=== PATIENT | male | born 1960 | race Caucasian/White ===

== ENCOUNTER 2017-02-25 01:41 | Emergency (ER) | payer MEDICAID ==
[2017-02-25] MEDS ORDERED: Haloperidol Lactate 5 MG/ML SDV IM ONE (02:12)
[2017-02-25] MEDS ORDERED: diphenhydrAMINE 50 MG/ML SDV IM ONE (02:12)
[2017-02-25] MEDS ORDERED: LORazepam 2 MG/ML MDV IM ONE (02:12)
[2017-02-25] MEDS ORDERED: diphenhydrAMINE 50 MG/ML SDV ONE (02:13)
[2017-02-25] MEDS ORDERED: Haloperidol Lactate 5 MG/ML SDV ONE (02:13)
[2017-02-25] MEDS ORDERED: LORazepam 2 MG/ML MDV ONE (02:13)
--- NOTE | 2017-02-25 02:27 | EDM.PDOCBH ---
<OfficerPhill - Last Filed: 02/25/17 02:23> ED HPI GENERAL MEDICAL PROBLEM - General Chief Complaint: Drug or Alcohol Abuse Stated Complaint: EVAL VIA [facility] Time Seen by Provider: 02/25/17 01:58 Source of Information: Reports: Patient, Police, RN Notes Reviewed History Limitations: Reports: Intoxication, Uncooperative - History of Present Illness INITIAL COMMENTS - FREE TEXT/NARRATIVE: 56-year-old gentleman brought in by law enforcement for psychiatric evaluation does admit to using alcohol being intoxicated he refused any intervention or service he did become violent while in presence of law enforcement was banging on simon and doors danger of harming himself, punching and kicking the door - Related Data Allergies Allergy/AdvReac Type Severity Reaction Status Date / Time No Known Allergies Allergy Verified 02/25/17 01:58 Home Meds: Home Meds *Aspirin 02/25/17 [History] Past Medical History Psychiatric History: Reports: Addiction Social & Family History - Tobacco Use Smoking Status *Q: Unknown Ever Smoked ED ROS GENERAL - Review of Systems Review Of Systems: Unable To Obtain ED EXAM, BEHAVIORAL HEALTH - Physical Exam Exam: See Below Exam Limited By: Uncooperative General Appearance: Alert Respiratory/Chest: No Respiratory Distress, Lungs Clear, Normal Breath Sounds, No Accessory Muscle Use Cardiovascular: Regular Rate, Rhythm, No Murmur COURSE, BEHAVIORAL HEALTH COMP - Course Vital Signs: Last Vital Signs Temp 97.1 F 02/25/17 05:02 Pulse 91 02/25/17 05:02 Resp 14 02/25/17 05:02 BP 110/65 02/25/17 05:02 Pulse Ox 92 L 02/25/17 05:02 Orders, Labs, Meds: Active Orders 24 hr Category Date Time Status Initiate Restraint Protocol [RC] BID Care 02/25/17 02:33 Active Medications Discontinued Medications Generic Name Dose Route Start Last Admin Trade Name Freq PRN Reason Stop Dose Admin Diphenhydramine HCl 25 mg 02/25/17 02:12 02/25/17 02:15 Benadryl IM 02/25/17 02:13 25 mg ONETIME ONE Administration Diphenhydramine HCl Confirm 02/25/17 02:13 Benadryl Administered 02/25/17 02:14 Dose 50 mg .ROUTE .STK-MED ONE Haloperidol Lactate 5 mg 02/25/17 02:12 02/25/17 02:31 Haldol IM 02/25/17 02:13 5 mg ONETIME ONE Administration Haloperidol Lactate Confirm 02/25/17 02:13 Haldol Administered 02/25/17 02:14 Dose 5 mg .ROUTE .STK-MED ONE Lorazepam 2 mg 02/25/17 02:12 02/25/17 02:15 Ativan IM 02/25/17 02:13 2 mg ONETIME ONE Administration Lorazepam Confirm 02/25/17 02:13 Ativan Administered 02/25/17 02:14 Dose 2 mg .ROUTE .STK-MED ONE Re-Assessment/Re-Exam: His situation started to deteriorate he became very aggressive towards law enforcement nursing staff I felt the situation was getting [id number] we needed to de-escalate for his safety and safety of all staff members therefore he was given combination of 5 mg Haldol, 2 mg Ativan 25 mg Benadryl as well as soft restraints. This is all initiated with the help of law enforcement Departure - Departure Disposition: Home, Self-Care 01 Clinical Impression: Alcohol intoxication Qualifiers: Complication of substance-induced condition: with unspecified complication Qualified Code(s): F10.929 - Alcohol use, unspecified with intoxication, unspecified - Discharge Information Instructions: Alcohol Intoxication, [id number] Referrals: PCP,None [Primary Care Provider] - Forms: ED Department Discharge Care Plan Goals: Increase diet and activity as tolerated, get plenty of fluids but avoid heavy use of alcohol in the future. <Baldemar Sparrow - Last Filed: 02/25/17 17:13> COURSE, BEHAVIORAL HEALTH COMP - Course Re-Assessment/Re-Exam: Patient slept soundly for 12 hours. When he awoke he had very little memory of the previous evening, said he felt "ashamed" of what happened and had no suicidal thoughts or ideation. He was discharged to home. Departure - Departure Time of Disposition: 15:04 Condition: Good
== END 2017-02-25 15:04 | disposition home or self-care (01) ==
LOC: JP.ED 01:41
DX: F10.129 Alcohol abuse with intoxication, unspecified (principal)
CPT/HCPCS: 96372; 99284; J1200; J1630; J2060; 99283

== ENCOUNTER 2021-03-05 17:53 | Emergency (ER) | payer MEDICARE, OTHER ==
--- NOTE | 2021-03-05 19:10 | EDM.PDOC ---
ED HPI GENERAL MEDICAL PROBLEM - General Chief Complaint: Wound Recheck Stated Complaint: POST SURGICAL BLEEDING IN THE GROIN Time Seen by Provider: 03/05/21 18:47 Source of Information: Reports: Patient History Limitations: Reports: No Limitations - History of Present Illness INITIAL COMMENTS - FREE TEXT/NARRATIVE: Patient presents to the emergency room today secondary to concern about surgical wound. He had surgical intervention for what he describes as folliculitis lateral groin area by Dr. Douglas patient states that he did fine with surgery went home and took a nap he woke up and he noted that there was some blood running between his legs in the groin area out from underneath his arm dressings he has no other symptoms of concern he came to the emergency room for a wound check reevaluation PMH/Meds--review in EMR NKDA Patient denies having had COVID, he has had his COVID immunization Tob--2ppd EtOH--1 pint once weekly Drugs--denies Onset: Today - Related Data Allergies Allergy/AdvReac Type Severity Reaction Status Date / Time No Known Allergies Allergy Verified 03/05/21 18:18 Home Meds: Home Meds *Aspirin 81 mg PO DAILY 02/25/17 [History] Acyclovir 200 mg PO BID 02/28/21 [History] Melatonin 10 mg PO BEDTIME 02/28/21 [History] Nabumetone [Relafen] 750 mg PO BID 02/28/21 [History] Naltrexone 50 mg PO DAILY 02/28/21 [History] clonazePAM [Clonazepam] 1 mg PO BID 02/28/21 [History] Past Medical History Cardiovascular History: Reports: Heart Murmur Musculoskeletal History: Reports: Back Pain, Chronic Other Musculoskeletal History: 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 Psychiatric History: Reports: Addiction, Anxiety Dermatologic History: Reports: Other (See Below) Other Dermatologic History: bilateral inguinal hydaranitis - Infectious Disease History Infectious Disease History: Reports: Chicken Pox, Mumps, Rubella, Shingles - Past Surgical History Cardiovascular Surgical History: Reports: None Musculoskeletal Surgical History: Reports: None Social & Family History - Family History Family Medical History: No Pertinent Family History - Tobacco Use Tobacco Use Status *Q: Heavy Tobacco User Years of Tobacco use: 40 Packs/Tins Daily: 2 - Caffeine Use Caffeine Use: Reports: Coffee - Recreational Drug Use Recreational Drug Use: No ED ROS GENERAL - Review of Systems Review Of Systems: Comprehensive ROS is negative, except as noted in HPI. Skin: Reports: Wound (bloody drainage from groin wounds/surgical sites) ED EXAM, SKIN/RASH Exam: See Below Exam Limited By: No Limitations General Appearance: Alert, WD/WN, No Apparent Distress Eye Exam: Bilateral Eye: EOMI, Normal Inspection Ears: Normal External Exam, Hearing Grossly Normal Throat/Mouth: Normal Voice, No Airway Compromise Head: Atraumatic, Normocephalic Neck: Normal Inspection, Supple, Non-Tender, Full Range of Motion Respiratory/Chest: No Respiratory Distress, Lungs Clear, Normal Breath Sounds, Chest Non-Tender Cardiovascular: Regular Rate, Rhythm, No Murmur GI/Abdominal: Normal Bowel Sounds, Soft, Non-Tender (Male) Exam: Other (bilateral groin lines noted for frantz that are intact, no noted active drainage/discharge, no swelling/fluctuance/fluid collection, mil d tenderness as expected from recent surgical procedure, evidence of previous bleeding--dried, old dark red blood noted) Rectal (Males) Exam: Deferred Back Exam: Normal Inspection, Full Range of Motion Extremities: Normal Inspection, Normal Range of Motion, Normal Capillary Refill Neurological: Alert, Oriented, Normal Cognition, Normal Gait, No Motor/Sensory Deficits Psychiatric: Normal Affect, Normal Mood Skin: Warm, Dry, Normal Color, Other (bilateral groin lines noted for frantz that are intact, no noted active drainage/discharge, no swelling/fluctuance/fluid collection, mild tenderness as expected from recent surgical procedure, evidence of previous bleeding--dried, old dark red blood noted) Course - Vital Signs Text/Narrative:: reassurance to patient that no abnormal findings on exam, may have some minor oozing/bloody drainage on dressing the next 24 hours. follow up with surgeon for any further wound related concerns Last Recorded V/S: Last Vital Signs Temp 98.1 F 03/05/21 18:17 Pulse 74 03/05/21 18:17 Resp 18 03/05/21 18:17 BP 151/81 H 03/05/21 18:17 Pulse Ox 99 03/05/21 18:17 Departure - Departure Time of Disposition: 19:07 Disposition: Home, Self-Care 01 Condition: Good Clinical Impression: Visit for wound check - Discharge Information *PRESCRIPTION DRUG MONITORING PROGRAM REVIEWED*: Not Applicable *COPY OF PRESCRIPTION DRUG MONITORING REPORT IN PATIENT HUNTER: Not Applicable Instructions: How to Change Your Wound Dressing, [id number], Sutures, Frantz, or Adhesive Wound Closure, [id number] Referrals: Kg Morocho MD [Primary Care Provider] - Forms: ED Department Discharge Additional Instructions: As discussed follow up with your surgeon tomorrow for any further wound care concerns--at this time there is no active bleeding noted on my exam. We have redressed the surgical wounds for your here in the ER--further wound care as instructed by your surgeon Avoid strenuous activity or activity that places skin stress/pulling on your groin areas bilaterally as this could cause further bleeding or skin tearing/damage at sight of frantz Sepsis Event Note (ED) - Evaluation Sepsis Screening Result: No Definite Risk - Focused Exam Vital Signs: Vital Signs Temp Pulse Resp BP Pulse Ox 03/05/21 18:17 98.1 F 74 18 151/81 H 99
== END 2021-03-05 19:53 | disposition home or self-care (01) ==
LOC: JP.ED 17:53
DX: Z48.01 Encounter for change or removal of surgical wound dressing (principal); Z79.82 Long term (current) use of aspirin; Z72.0 Tobacco use
CPT/HCPCS: 99282

== ENCOUNTER 2023-04-14 17:47 | Emergency (ER) | payer MEDICARE, MEDICAID ==
[2023-04-14 18:07] LABS: BASOPHILS ABSOLUTE AUTO 0.07 K/uL (0.00-0.10); BASOPHILS PERCENT AUTO 0.6 % (0.1-1.3); EOSINOPHILS PERCENT AUTO 2.7 % (0.0-5.4); HEMATOCRIT 39.2 % (38.4-49.7); HEMOGLOBIN 13.5 g/dL (12.9-16.9); IMMATURE GRAN ABSOLUTE AUTO 0.03 K/uL (0.00-0.23); IMMATURE GRAN PERCENT AUTO 0.3 % (0.0-0.7); LYMPHOCYTES ABSOLUTE AUTO 3.54 K/uL (0.8-3.3); LYMPHOCYTES PERCENT AUTO 31.8 % (11.4-47.7); MEAN CORPUSCULAR HEMOGLOBIN 32.4 pg (31.6-35.5); MEAN CORPUSCULAR HGB CONC 34.4 g/dL (31.6-35.5); NEUTROPHILS ABSOLUTE AUTO 6.19 K/uL (1.0-7.6); NEUTROPHILS PERCENT AUTO 55.6 % (40.0-78.1); PLATELET COUNT,PLT 322 K/uL (130-375); RED BLOOD CELL COUNT 4.17 M/uL (4.14-5.76); WHITE BLOOD CELL COUNT,WBC 11.1 K/uL (3.2-11.0)
[2023-04-14 18:12] LABS: AMPHETAMINES SCREEN, URINE NEGATIVE (NEGATIVE); BARBITURATE SCREEN,URINE NEGATIVE (NEGATIVE); BENZODIAZEPINES SCREEN,URINE NEGATIVE (NEGATIVE); METHADONE SCREEN, URINE NEGATIVE (NEGATIVE); METHAMPHETAMINES SCREEN, URINE NEGATIVE (NEGATIVE); OXYCODONE SCREEN,URINE NEGATIVE (NEGATIVE); PROPOXYPHENE SCREEN,URINE NEGATIVE (NEGATIVE); THC SCREEN,URINE 50 NG/ML NEGATIVE (NEGATIVE)
[2023-04-14 18:34] LABS: ALANINE AMINOTRANSFERASE,ALT 17 U/L (12-78); ALBUMIN 3.6 g/dL (3.4-5.0); ALKALINE PHOSPHATASE 83 U/L (46-116); ANION GAP 5.6 mmol/L (5.0-14.0); ASPARTATE AMNIOTRANSFERASE,AST 15 U/L (15-37); BILIRUBIN TOTAL 0.5 mg/dL (0.2-1.0); BLOOD UREA NITROGEN,BUN 8 mg/dL (7-18); CARBON DIOXIDE,CO2 28 mmol/L (21-32); CHLORIDE,CL 106 mmol/L (100-108); CREATININE 1.1 mg/dL (0.8-1.3); EST CRCL DRUG DOSING (CG) 74.16 mL/min; ESTIMATED GFR 76 mL/min (>60); GLUCOSE RANDOM 107 mg/dL (74-106); POTASSIUM,K 3.8 mmol/L (3.6-5.2); PROTEIN TOTAL,TP 7.2 g/dL (6.4-8.2); SODIUM,NA 140 mmol/L (140-148)
== END 2023-04-14 19:24 ==
LOC: JP.ED 17:47
DX: Z04.6 Encounter for general psychiatric examination, requested by authority (principal); F10.920 Alcohol use, unspecified with intoxication, uncomplicated; Z79.82 Long term (current) use of aspirin
CPT/HCPCS: 36415; 80053; 80305-QW; 80307; 85025; 99284

== ENCOUNTER 2023-06-30 09:42 | Emergency (ER) | payer MEDICARE, MEDICAID ==
[2023-06-30] MEDS: ClonazePAM 0.5 MG Tab PO ONE (10:43)
== END 2023-06-30 11:30 | disposition other institution (70) ==
LOC: JP.ED 09:42
DX: F41.9 Anxiety disorder, unspecified (principal); I10 Essential (primary) hypertension; E78.00 Pure hypercholesterolemia, unspecified; F17.210 Nicotine dependence, cigarettes, uncomplicated; Z79.899 Other long term (current) drug therapy
CPT/HCPCS: 99284; A9270